=== PATIENT | male | born 1980 | race Caucasian/White ===

== ENCOUNTER 2023-07-02 15:25 | Emergency (ER) | payer SELFPAY ==
[~2023-07-02] VITALS: Ht 162.6 cm; Wt 81.6 kg
[2023-07-02] MEDS ORDERED: IBUPROFEN 600 MG TABLET PO ONE (15:30)
[2023-07-02] MEDS ORDERED: IBUPROFEN 600 MG TABLET ONE (15:43)
[2023-07-02 15:48] VITALS: O2SAT 98
[2023-07-02] MEDS ORDERED: IBUP-1953 PO (16:19)
== END 2023-07-02 17:00 | disposition home or self-care (01) ==
LOC: ER 15:25
DX: S40.012A Contusion of left shoulder, initial encounter (principal); S00.01XA Abrasion of scalp, initial encounter; T14.8XXA Other injury of unspecified body region, initial encounter; E11.9 Type 2 diabetes mellitus without complications; Z79.1 Long term (current) use of non-steroidal anti-inflammatories (NSAID); W25.XXXA Contact with sharp glass, initial encounter; Y93.89 Activity, other specified; Y92.89 Other specified places as the place of occurrence of the external cause; Y99.8 Other external cause status
CPT/HCPCS: 73030; A4663